=== PATIENT | male | born 1970 | race Hispanic/Latino ===

== ENCOUNTER 2022-09-30 09:47 | Inpatient (IN) | payer MEDICARE, OTHER ==
[~2022-09-30] VITALS: Ht 180.3 cm; Wt 114.8 kg
[~2022-09-30 09:47] MED LIST: LISINOPRIL20 MG; METFORMIN HCL500 MG PO
[2022-09-30] MEDS ORDERED: ASPIRIN 325 MG TAB PO ONE (10:00)
[2022-09-30] MEDS ORDERED: SODIUM CHLORIDE FLUSH 10 ML SYR IV PRN (10:00)
[2022-09-30 10:30] LABS: BASOPHILS % 0.4 % (0.0-1.0); EOSINOPHILS # (AUTO) 0.2 (0.0-0.4); EOSINOPHILS % 1.9 % (0.0-6.0); HEMATOCRIT 27.9 % (38.2-49.6); HEMOGLOBIN 9.1 g/dL (14.0-18.0); LYMPHOCYTES # (AUTO) 0.7 (1.0-3.2); LYMPHOCYTES % 8.2 % (18.0-39.1); MEAN CORPUSCULAR HGB CONC 32.6 g/dL (31-35); MEAN CORPUSCULAR VOLUME 82.8 fL (81-99); MONOCYTES # (AUTO) 0.7 (0.2-0.8); MONOCYTES % 9.1 % (4.4-11.3); NEUTROPHILS # (AUTO) 6.3 (2.1-6.9); NEUTROPHILS % 79.3 % (38.7-80.0); PLATELET COUNT 125 x10e3/uL (140-360); RED BLOOD COUNT 3.37 x10e6/uL (4.3-5.7); RED CELL DISTRIBUTION WIDTH 16.5 % (11.7-14.4)
[2022-09-30] MEDS: FUROSEMIDE INJ 10 MG/ML 4 ML VIAL IV SCH ×2 (10:32→22:15)
[2022-09-30 10:34] LABS: ALBUMIN 3.1 g/dL (3.5-5.0); ALBUMIN/GLOBULIN RATIO 0.7 (0.8-2.0); ANION GAP 15.2 mmol/L (8-16); CALCIUM 8.8 mg/dL (8.4-10.2); CREATININE, SERUM 3.04 mg/dL (0.72-1.25); POTASSIUM 4.2 mmol/L (3.5-5.1)
[2022-09-30 10:41] LABS: INR 1.52; PROTHROMBIN TIME 19.6 seconds (11.9-14.5)
[2022-09-30 10:42] LABS: PARTIAL THROMBOPLASTIN TIME 48.5 seconds (23.8-35.5)
[2022-09-30 13:59] LABS: CLARITY,URINE CLEAR (CLEAR); COLOR,URINE YELLOW (YELLOW); KETONES,URINE NEGATIVE (NEGATIVE); LEUKOCYTE ESTERASE ,URINE NEGATIVE (NEGATIVE); NITRITE,URINE NEGATIVE (NEGATIVE); PROTEIN,URINE DIPSTICK >=300 (NEGATIVE)
[2022-09-30 14:00] LABS: URINE UROBILINOGEN 0.2 mg/dL (0.2 - 1)
[2022-09-30] MEDS ORDERED: ASPIRIN 81 MG CHEW TAB PO ONE (14:00)
[2022-09-30] MEDS ORDERED: ONDANSETRON HCL INJ 2MG/ML 2ML 2 MG/ML VIAL IV PRN (14:00)
[2022-09-30] MEDS ORDERED: DEXTROSE 50% SYRINGE 50 ML IV PRN ×3 (14:00)
[2022-09-30 14:17] LABS: AMORPHOUS SEDIMENT,URINE MODERATE (FEW); BACTERIA,URINE FEW /HPF; EPITHELIAL CELLS,URINE FEW /LPF; RBC,URINE 0-5 /HPF (0-5)
[2022-09-30] MEDS ORDERED: SODIUM CHLORIDE 0.9% 250ML 250 ML ONE (15:04)
[2022-09-30] MEDS ORDERED: FUROSEMIDE20 MG PO (15:16)
[2022-09-30] MEDS ORDERED: ATORVASTATIN CA40 MG PO (15:16)
[2022-09-30] MEDS ORDERED: CARVEDILOL12.5 MG PO (15:16)
[2022-09-30] MEDS ORDERED: NIFEDIPINE ER30 M1 PO (15:16)
[2022-09-30] MEDS ORDERED: ELIQUIS5 MG PO (15:16)
[2022-09-30] MEDS ORDERED: SERTRALINE HCL50 MG PO (15:16)
[2022-09-30] MEDS ORDERED: LANTUS 3ML100 UNITS/ SQ (15:16)
[2022-09-30 15:21] VITALS: BP 128/76
[2022-09-30 16:28] VITALS: BP 128/76
[2022-09-30] MEDS: INSULIN REGULAR, HUMAN 100 UNIT/1 ML SQ SCH ×2 (17:38→22:17)
[2022-09-30 17:42] LABS: CREATINE KINASE MB 1.2 ng/mL (0-5.0)
[2022-09-30 20:00] VITALS: BP 133/73
[2022-09-30 22:15] VITALS: BP 133/73
[2022-09-30 22:49] LABS: CREATINE KINASE MB 1.2 ng/mL (0-5.0)
[2022-10-01] VITALS (7 sets, daily range): BP systolic 137–153; BP diastolic 72–85
[2022-10-01 05:59] LABS: BASOPHILS % 0.4 % (0.0-1.0); EOSINOPHILS # (AUTO) 0.1 (0.0-0.4); EOSINOPHILS % 1.5 % (0.0-6.0); HEMATOCRIT 28.3 % (38.2-49.6); HEMOGLOBIN 8.5 g/dL (14.0-18.0); LYMPHOCYTES # (AUTO) 0.6 (1.0-3.2); LYMPHOCYTES % 7.9 % (18.0-39.1); MEAN CORPUSCULAR HEMOGLOBIN 26.5 pg (28-32); MEAN CORPUSCULAR VOLUME 88.2 fL (81-99); MONOCYTES # (AUTO) 0.7 (0.2-0.8); MONOCYTES % 9.4 % (4.4-11.3); NEUTROPHILS # (AUTO) 6.2 (2.1-6.9); NEUTROPHILS % 80.4 % (38.7-80.0); PLATELET COUNT 140 x10e3/uL (140-360); RED BLOOD COUNT 3.21 x10e6/uL (4.3-5.7); RED CELL DISTRIBUTION WIDTH 15.9 % (11.7-14.4)
[2022-10-01 06:31] LABS: ALBUMIN 2.8 g/dL (3.5-5.0); ALBUMIN/GLOBULIN RATIO 0.7 (0.8-2.0); ANION GAP 15.1 mmol/L (8-16); CALCIUM 8.8 mg/dL (8.4-10.2); CREATININE, SERUM 3.04 mg/dL (0.72-1.25); POTASSIUM 4.1 mmol/L (3.5-5.1)
[2022-10-01 06:40] LABS: CREATINE KINASE MB 0.9 ng/mL (0-5.0)
[2022-10-01] MEDS: INSULIN REGULAR, HUMAN 100 UNIT/1 ML SQ SCH ×4 (07:30→21:20)
[2022-10-01] MEDS: FUROSEMIDE INJ 10 MG/ML 4 ML VIAL IV SCH ×2 (09:49→20:54)
[2022-10-01] MEDS ORDERED: APIXABAN 5 MG TABLET PO SCH (17:00)
[2022-10-01] MEDS: ATORVASTATIN 40 MG TAB PO SCH (20:54)
[2022-10-01] MEDS ORDERED: NON-FORMULARY MEDICATION (Atorvastatin Calcium 40 MG) PO SCH (21:00)
[2022-10-02] VITALS (8 sets, daily range): BP systolic 133–161; BP diastolic 72–95
[2022-10-02 05:43] LABS: BASOPHILS % 0.4 % (0.0-1.0); EOSINOPHILS # (AUTO) 0.3 (0.0-0.4); EOSINOPHILS % 3.4 % (0.0-6.0); HEMATOCRIT 28.8 % (38.2-49.6); HEMOGLOBIN 8.8 g/dL (14.0-18.0); LYMPHOCYTES # (AUTO) 0.8 (1.0-3.2); LYMPHOCYTES % 9.8 % (18.0-39.1); MEAN CORPUSCULAR HEMOGLOBIN 26.9 pg (28-32); MEAN CORPUSCULAR HGB CONC 30.6 g/dL (31-35); MEAN CORPUSCULAR VOLUME 88.1 fL (81-99); MONOCYTES # (AUTO) 0.8 (0.2-0.8); MONOCYTES % 9.9 % (4.4-11.3); PLATELET COUNT 171 x10e3/uL (140-360); RED BLOOD COUNT 3.27 x10e6/uL (4.3-5.7); RED CELL DISTRIBUTION WIDTH 15.6 % (11.7-14.4)
[2022-10-02 06:12] LABS: CALCIUM 9.1 mg/dL (8.4-10.2); CREATININE, SERUM 2.94 mg/dL (0.72-1.25)
[2022-10-02] MEDS: INSULIN REGULAR, HUMAN 100 UNIT/1 ML SQ SCH ×4 (07:30→21:00)
[2022-10-02] MEDS: APIXAB 2.5 MG TABLET PO SCH ×2 (08:40→17:41)
[2022-10-02] MEDS: FUROSEMIDE INJ 10 MG/ML 4 ML VIAL IV SCH ×3 (08:41→17:41)
[2022-10-02] MEDS ORDERED: ONDANSETRON HCL 4 MG ORAL DISINTEGRATING TAB PO PRN (10:45)
[2022-10-02] MEDS: METOLAZONE 5 MG TAB PO SCH (14:30)
[2022-10-02] MEDS: ATORVASTATIN 40 MG TAB PO SCH (21:00)
[2022-10-03] VITALS (7 sets, daily range): BP systolic 140–170; BP diastolic 88–96
[2022-10-03] MEDS: FUROSEMIDE INJ 10 MG/ML 4 ML VIAL IV SCH ×5 (00:13→23:49)
[2022-10-03 07:07] LABS: ALBUMIN 2.6 g/dL (3.5-5.0); ALBUMIN/GLOBULIN RATIO 0.6 (0.8-2.0); ANION GAP 14.5 mmol/L (8-16); CALCIUM 9.1 mg/dL (8.4-10.2); CREATININE, SERUM 2.55 mg/dL (0.72-1.25); POTASSIUM 3.5 mmol/L (3.5-5.1)
[2022-10-03] MEDS: INSULIN REGULAR, HUMAN 100 UNIT/1 ML SQ SCH ×4 (07:30→21:00)
[2022-10-03] MEDS ORDERED: CARVEDILOL 12.5 MG TAB PO SCH (09:00)
[2022-10-03] MEDS: APIXAB 2.5 MG TABLET PO SCH ×2 (09:38→17:39)
[2022-10-03] MEDS: METOLAZONE 5 MG TAB PO SCH (09:38)
[2022-10-03] MEDS: CARVEDILOL 12.5 MG TAB PO SCH (17:40)
[2022-10-03] MEDS ORDERED: POTASSIUM CHLORIDE 20 MEQ TAB CR PO STA (18:30)
[2022-10-03] MEDS: ATORVASTATIN 40 MG TAB PO SCH (21:00)
[2022-10-03] MEDS: HYDRALAZINE HCL 20 MG/ML VIAL IV PRN (22:06)
[2022-10-04] VITALS (7 sets, daily range): BP systolic 147–164; BP diastolic 80–95
[2022-10-04] MEDS: FUROSEMIDE INJ 10 MG/ML 4 ML VIAL IV SCH ×3 (05:52→17:23)
[2022-10-04 06:07] LABS: BASOPHILS % 0.5 % (0.0-1.0); EOSINOPHILS # (AUTO) 0.3 (0.0-0.4); EOSINOPHILS % 5.3 % (0.0-6.0); HEMATOCRIT 28.6 % (38.2-49.6); HEMOGLOBIN 9.4 g/dL (14.0-18.0); LYMPHOCYTES # (AUTO) 0.9 (1.0-3.2); LYMPHOCYTES % 16.5 % (18.0-39.1); MEAN CORPUSCULAR HEMOGLOBIN 26.9 pg (28-32); MEAN CORPUSCULAR HGB CONC 32.9 g/dL (31-35); MEAN CORPUSCULAR VOLUME 81.7 fL (81-99); MONOCYTES # (AUTO) 0.5 (0.2-0.8); MONOCYTES % 9.9 % (4.4-11.3); NEUTROPHILS # (AUTO) 3.7 (2.1-6.9); NEUTROPHILS % 67.4 % (38.7-80.0); PLATELET COUNT 211 x10e3/uL (140-360); RED CELL DISTRIBUTION WIDTH 15.9 % (11.7-14.4)
[2022-10-04 06:28] LABS: ANION GAP 13.3 mmol/L (8-16); CALCIUM 9.2 mg/dL (8.4-10.2); CREATININE, SERUM 2.51 mg/dL (0.72-1.25); POTASSIUM 3.3 mmol/L (3.5-5.1)
[2022-10-04 06:47] LABS: CHOL/HDL RATIO 3.6 (3.9-4.7)
[2022-10-04 07:06] LABS: THYROID STIMULATING HORMONE 1.417 uIU/mL (0.350-4.940)
[2022-10-04] MEDS: INSULIN REGULAR, HUMAN 100 UNIT/1 ML SQ SCH ×4 (07:30→22:08)
[2022-10-04] MEDS: APIXAB 2.5 MG TABLET PO SCH ×2 (09:55→17:23)
[2022-10-04] MEDS: METOLAZONE 5 MG TAB PO SCH (09:55)
[2022-10-04] MEDS: CARVEDILOL 12.5 MG TAB PO SCH ×2 (09:56→17:23)
[2022-10-04] MEDS ORDERED: POTASSIUM CHLORIDE 20 MEQ TAB CR PO STA (18:54)
[2022-10-04] MEDS: ATORVASTATIN 40 MG TAB PO SCH (22:02)
[2022-10-05] VITALS (7 sets, daily range): BP systolic 124–167; BP diastolic 80–90
[2022-10-05] MEDS: FUROSEMIDE INJ 10 MG/ML 4 ML VIAL IV SCH ×2 (00:24→06:10)
[2022-10-05] MEDS: HYDRALAZINE HCL 20 MG/ML VIAL IV PRN (00:25)
[2022-10-05 06:35] LABS: ANION GAP 18.1 mmol/L (8-16); CALCIUM 9.5 mg/dL (8.4-10.2); CREATININE, SERUM 2.43 mg/dL (0.72-1.25); POTASSIUM 3.1 mmol/L (3.5-5.1)
[2022-10-05] MEDS: INSULIN REGULAR, HUMAN 100 UNIT/1 ML SQ SCH ×4 (07:30→21:16)
[2022-10-05] MEDS: CARVEDILOL 12.5 MG TAB PO SCH ×2 (10:06→17:00)
[2022-10-05] MEDS: METOLAZONE 5 MG TAB PO SCH (10:07)
[2022-10-05] MEDS: NIFEDIPINE CR 30 MG TAB PO SCH (10:07)
[2022-10-05] MEDS: APIXAB 2.5 MG TABLET PO SCH ×2 (10:07→17:00)
[2022-10-05] MEDS ORDERED: POTASSIUM CHLORIDE 20 MEQ TAB CR PO ONE (12:00)
[2022-10-05] MEDS ORDERED: AZITHROMYCIN 250 MG TAB PO SCH (14:00)
[2022-10-05] MEDS: ATORVASTATIN 40 MG TAB PO SCH (21:17)
[2022-10-05 22:15] LABS: CREATININE,URINE RANDOM 113.35 mg/dL (63-166)
[2022-10-05 22:39] LABS: TOTAL PROTEIN, URINE 609.8 mg/dL (1-14)
[2022-10-06 01:44] VITALS: BP 133/79
[2022-10-06 04:54] VITALS: BP 133/78
[2022-10-06] MEDS: INSULIN REGULAR, HUMAN 100 UNIT/1 ML SQ SCH (07:30)
[2022-10-06 08:03] VITALS: BP 127/78
[2022-10-06] MEDS ORDERED: ENALAPRIL MALEATE 10 MG TAB PO SCH (09:00)
[2022-10-06] MEDS ORDERED: COREG12.5 MG PO (09:16)
[2022-10-06] MEDS ORDERED: ELIQUIS2.5 MG PO (09:16)
[2022-10-06] MEDS ORDERED: VASOTEC10 MG PO (09:16)
[2022-10-06] MEDS ORDERED: METOLAZONE5 MG PO (09:16)
[2022-10-06] MEDS: METOLAZONE 5 MG TAB PO SCH (09:18)
[2022-10-06] MEDS: APIXAB 2.5 MG TABLET PO SCH (09:18)
[2022-10-06] MEDS: CARVEDILOL 12.5 MG TAB PO SCH (09:18)
[2022-10-06] MEDS: NIFEDIPINE CR 30 MG TAB PO SCH (09:19)
[2022-10-06 09:28] VITALS: BP 127/78
[2022-10-06 09:53] LABS: ANION GAP 14.5 mmol/L (8-16); CREATININE, SERUM 2.81 mg/dL (0.72-1.25); POTASSIUM 3.5 mmol/L (3.5-5.1)
[2022-10-06 11:44] VITALS: BP 134/81
== END 2022-10-06 13:30 | disposition home health service (06) | DRG 177 ==
LOC: ER 09:58 → ERHOLD 13:54 → INTOOBSV 13:54 → MED/SURG2 14:43 → OBSVTOIN 10-02 07:23
PROVIDERS: ADMIT Internal Medicine; ATTEND Internal Medicine
DX: J69.0 Pneumonitis due to inhalation of food and vomit (principal); I50.33 Acute on chronic diastolic (congestive) heart failure; I13.0 Hypertensive heart and chronic kidney disease with heart failure and stage 1 through stage 4 chronic kidney disease, or unspecified chronic kidney disease; I69.351 Hemiplegia and hemiparesis following cerebral infarction affecting right dominant side; N17.9 Acute kidney failure, unspecified; E87.20 Acidosis, unspecified; N18.4 Chronic kidney disease, stage 4 (severe); D63.8 Anemia in other chronic diseases classified elsewhere; E11.319 Type 2 diabetes mellitus with unspecified diabetic retinopathy without macular edema; E11.22 Type 2 diabetes mellitus with diabetic chronic kidney disease; E11.42 Type 2 diabetes mellitus with diabetic polyneuropathy; E11.69 Type 2 diabetes mellitus with other specified complication; E78.5 Hyperlipidemia, unspecified; I69.391 Dysphagia following cerebral infarction; R13.10 Dysphagia, unspecified; I48.91 Unspecified atrial fibrillation; E66.9 Obesity, unspecified; G47.33 Obstructive sleep apnea (adult) (pediatric); Z89.421 Acquired absence of other right toe(s); Z79.01 Long term (current) use of anticoagulants; Z68.35 Body mass index [BMI] 35.0-35.9, adult; I25.2 Old myocardial infarction; Z86.16 Personal history of COVID-19; Z82.49 Family history of ischemic heart disease and other diseases of the circulatory system; Z20.822 Contact with and (suspected) exposure to COVID-19; E87.6 Hypokalemia; Z79.4 Long term (current) use of insulin
CPT/HCPCS: 36415; 71045; 74230; 76770; 80048; 80053; 80061; 81001; 82550; 82553; 82570; 82948; 83036; 83880; 84156; 84443; 84484; 85025; 85610; 85730; 87040; 93005; 94799; 99284; G0378; J0360; J0456; J0696; J1817; J1940; J7050

== ENCOUNTER 2022-10-26 20:56 | Emergency (ER) | payer MEDICARE, OTHER ==
[~2022-10-26] VITALS: Ht 180.3 cm; Wt 114.8 kg
[~2022-10-26 20:56] MED LIST changes: +ATORVASTATIN CA40 MG PO; +CARVEDILOL12.5 MG PO; +COREG12.5 MG PO; +ELIQUIS2.5 MG PO; +ELIQUIS5 MG PO; +FUROSEMIDE20 MG PO; +LANTUS 3ML100 UNITS/ SQ; +METOLAZONE5 MG PO; +NIFEDIPINE ER30 M1 PO; +SERTRALINE HCL50 MG PO; +VASOTEC10 MG PO
[2022-10-27] MEDS ORDERED: ACETAMINOPHEN 325 MG TAB PO ONE (02:30)
[2022-10-27 02:39] VITALS: BP 149/86
== END 2022-10-27 02:40 | disposition home or self-care (01) ==
LOC: ER 21:04
DX: S00.83XA Contusion of other part of head, initial encounter (principal); S40.011A Contusion of right shoulder, initial encounter; W01.198A Fall on same level from slipping, tripping and stumbling with subsequent striking against other object, initial encounter; Y93.E1 Activity, personal bathing and showering; Y92.091 Bathroom in other non-institutional residence as the place of occurrence of the external cause; I10 Essential (primary) hypertension; E11.9 Type 2 diabetes mellitus without complications; I50.9 Heart failure, unspecified; I69.351 Hemiplegia and hemiparesis following cerebral infarction affecting right dominant side
CPT/HCPCS: 70450; 72125; 99283

== ENCOUNTER 2023-04-09 18:32 | Inpatient (IN) | payer MEDICARE, OTHER ==
[~2023-04-09] VITALS: Ht 180.3 cm; Wt 114.8 kg
[2023-04-09 19:52] LABS: BASOPHILS % 0.5 % (0.0-1.0); EOSINOPHILS # (AUTO) 0.3 (0.0-0.4); EOSINOPHILS % 3.8 % (0.0-6.0); HEMATOCRIT 32.6 % (38.2-49.6); HEMOGLOBIN 10.4 g/dL (14.0-18.0); LYMPHOCYTES % 13.3 % (18.0-39.1); MEAN CORPUSCULAR HEMOGLOBIN 28.9 pg (28-32); MEAN CORPUSCULAR HGB CONC 31.9 g/dL (31-35); MEAN CORPUSCULAR VOLUME 90.6 fL (81-99); MONOCYTES # (AUTO) 0.5 (0.2-0.8); MONOCYTES % 7.1 % (4.4-11.3); NEUTROPHILS # (AUTO) 5.5 (2.1-6.9); NEUTROPHILS % 74.9 % (38.7-80.0); PLATELET COUNT 152 x10e3/uL (140-360); RED CELL DISTRIBUTION WIDTH 14.6 % (11.7-14.4)
[2023-04-09 20:11] LABS: ALBUMIN 3.9 g/dL (3.5-5.0); ALBUMIN/GLOBULIN RATIO 0.9 (0.8-2.0); ANION GAP 15.6 mmol/L (8-16); CALCIUM 8.9 mg/dL (8.4-10.2); CREATININE, SERUM 3.45 mg/dL (0.72-1.25); POTASSIUM 4.6 mmol/L (3.5-5.1)
[2023-04-09 20:19] LABS: CREATINE KINASE MB 1.1 ng/mL (0-5.0)
[2023-04-09 20:22] LABS: CLARITY,URINE SL CLOUDY (CLEAR); COLOR,URINE YELLOW (YELLOW); KETONES,URINE TRACE (NEGATIVE); LEUKOCYTE ESTERASE ,URINE NEGATIVE (NEGATIVE); NITRITE,URINE NEGATIVE (NEGATIVE); PROTEIN,URINE DIPSTICK >=300 (NEGATIVE); URINE UROBILINOGEN 0.2 mg/dL (0.2 - 1)
[2023-04-09 20:34] LABS: BACTERIA,URINE MODERATE /HPF; EPITHELIAL CELLS,URINE MANY /LPF
[2023-04-09] MEDS ORDERED: DEXTROSE 50% SYRINGE 50 ML IV PRN (20:45)
[2023-04-09] MEDS ORDERED: SODIUM CHLORIDE 0.9% 1000ML 1,000 ML IV ONE (20:45)
[2023-04-09] MEDS: INSULIN REGULAR, HUMAN 100 UNIT/1 ML SQ SCH (21:00)
[2023-04-09 23:30] VITALS: BP 146/78; PULSE 79; RESP 18; TEMP 97.7; O2SAT 99
[2023-04-10 00:34] VITALS: BP 146/78; PULSE 79; RESP 18; TEMP 97.7; O2SAT 100
[2023-04-10 04:52] VITALS: BP 136/76; PULSE 72; RESP 17; TEMP 97.7; O2SAT 100
[2023-04-10] MEDS: INSULIN REGULAR, HUMAN 100 UNIT/1 ML SQ SCH ×4 (07:30→21:00)
[2023-04-10 07:41] LABS: BASOPHILS # (AUTO) 0.1 (0.0-0.1); BASOPHILS % 0.7 % (0.0-1.0); EOSINOPHILS # (AUTO) 0.4 (0.0-0.4); EOSINOPHILS % 4.7 % (0.0-6.0); HEMOGLOBIN 10.4 g/dL (14.0-18.0); LYMPHOCYTES # (AUTO) 1.5 (1.0-3.2); LYMPHOCYTES % 19.8 % (18.0-39.1); MEAN CORPUSCULAR HEMOGLOBIN 29.1 pg (28-32); MEAN CORPUSCULAR HGB CONC 32.5 g/dL (31-35); MEAN CORPUSCULAR VOLUME 89.4 fL (81-99); MONOCYTES # (AUTO) 0.5 (0.2-0.8); MONOCYTES % 6.9 % (4.4-11.3); NEUTROPHILS % 67.8 % (38.7-80.0); PLATELET COUNT 120 x10e3/uL (140-360); RED BLOOD COUNT 3.58 x10e6/uL (4.3-5.7); RED CELL DISTRIBUTION WIDTH 14.2 % (11.7-14.4)
[2023-04-10 08:08] LABS: ALBUMIN 3.5 g/dL (3.5-5.0); ANION GAP 12.4 mmol/L (8-16); CALCIUM 8.7 mg/dL (8.4-10.2); CREATININE, SERUM 2.89 mg/dL (0.72-1.25); POTASSIUM 4.4 mmol/L (3.5-5.1)
[2023-04-10 09:00] VITALS: BP 158/95; PULSE 73; RESP 16; TEMP 98.1; O2SAT 98
[2023-04-10 13:00] VITALS: BP 150/91; PULSE 75; RESP 20; TEMP 97.6; O2SAT 99
[2023-04-10] MEDS ORDERED: ONDANSETRON HCL INJ 2MG/ML 2ML 2 MG/ML VIAL IV PRN (13:45)
[2023-04-10] MEDS ORDERED: ACETAMINOPHEN 325 MG TAB PO PRN (13:45)
[2023-04-10] MEDS: APIXAB 2.5 MG TABLET PO SCH (17:34)
[2023-04-10] MEDS: CARVEDILOL 12.5 MG TAB PO SCH (17:34)
[2023-04-10 20:00] VITALS: BP 153/85; PULSE 71; RESP 18; TEMP 97.8; O2SAT 100
[2023-04-10] MEDS ORDERED: ATORVASTATIN 40 MG TAB PO SCH (21:00)
[2023-04-11 00:59] VITALS: BP 154/82; PULSE 66; RESP 18; TEMP 97.7; O2SAT 100
[2023-04-11 05:00] VITALS: BP 154/81; PULSE 65; RESP 18; TEMP 97.5; O2SAT 100
[2023-04-11 06:01] LABS: BASOPHILS % 0.6 % (0.0-1.0); EOSINOPHILS # (AUTO) 0.3 (0.0-0.4); EOSINOPHILS % 4.6 % (0.0-6.0); HEMOGLOBIN 10.2 g/dL (14.0-18.0); LYMPHOCYTES # (AUTO) 1.3 (1.0-3.2); LYMPHOCYTES % 20.1 % (18.0-39.1); MEAN CORPUSCULAR HEMOGLOBIN 28.7 pg (28-32); MEAN CORPUSCULAR HGB CONC 31.9 g/dL (31-35); MEAN CORPUSCULAR VOLUME 89.9 fL (81-99); MONOCYTES # (AUTO) 0.4 (0.2-0.8); MONOCYTES % 6.7 % (4.4-11.3); NEUTROPHILS # (AUTO) 4.3 (2.1-6.9); NEUTROPHILS % 67.7 % (38.7-80.0); PLATELET COUNT 131 x10e3/uL (140-360); RED BLOOD COUNT 3.56 x10e6/uL (4.3-5.7); RED CELL DISTRIBUTION WIDTH 14.1 % (11.7-14.4)
[2023-04-11 06:38] LABS: ANION GAP 10.4 mmol/L (8-16); CALCIUM 9.1 mg/dL (8.4-10.2); CREATININE, SERUM 2.27 mg/dL (0.72-1.25); POTASSIUM 4.4 mmol/L (3.5-5.1)
[2023-04-11] MEDS: INSULIN REGULAR, HUMAN 100 UNIT/1 ML SQ SCH (07:30)
[2023-04-11 08:41] VITALS: BP 158/86; PULSE 65; RESP 22; TEMP 97.7; O2SAT 100
[2023-04-11] MEDS ORDERED: NIFEDIPINE CR 30 MG TAB PO SCH (09:00)
[2023-04-11] MEDS ORDERED: SERTRALINE HCL 50 MG TAB PO SCH (09:00)
[2023-04-11] MEDS ORDERED: ENALAPRIL MALEATE 10 MG TAB PO SCH (09:00)
[2023-04-11] MEDS: APIXAB 2.5 MG TABLET PO SCH (10:00)
[2023-04-11] MEDS: CARVEDILOL 12.5 MG TAB PO SCH (10:01)
[2023-04-11 12:33] VITALS: BP 138/80; PULSE 57; RESP 18; TEMP 98.2; O2SAT 98
== END 2023-04-11 14:05 | disposition home or self-care (01) | DRG 683 ==
LOC: ER 18:38 → ERHOLD 20:35 → MED/SURG2 23:42 → OBSVTOIN 04-11 11:32
PROVIDERS: ADMIT Internal Medicine; ATTEND Internal Medicine
DX: N17.9 Acute kidney failure, unspecified (principal); I13.0 Hypertensive heart and chronic kidney disease with heart failure and stage 1 through stage 4 chronic kidney disease, or unspecified chronic kidney disease; I69.351 Hemiplegia and hemiparesis following cerebral infarction affecting right dominant side; E86.0 Dehydration; N18.30 Chronic kidney disease, stage 3 unspecified; R19.7 Diarrhea, unspecified; I50.9 Heart failure, unspecified; E11.22 Type 2 diabetes mellitus with diabetic chronic kidney disease; Z89.441 Acquired absence of right ankle
CPT/HCPCS: 0223U; 36415; 70450; 71045; 80048; 80053; 81001; 82550; 82553; 82948; 83880; 84484; 85025; 93005; 99284; G0378; J7030

== ENCOUNTER 2024-06-22 10:43 | Emergency (ER) | payer MEDICARE ==
[~2024-06-22] VITALS: Ht 170.2 cm; Wt 114.8 kg
[2024-06-22 10:45] VITALS: TEMP 97.1
[2024-06-22 11:17] LABS: BASOPHILS % 0.5 % (0.0-1.0); EOSINOPHILS # (AUTO) 0.2 (0.0-0.4); HEMATOCRIT 36.4 % (38.2-49.6); HEMOGLOBIN 11.4 g/dL (14.0-18.0); LYMPHOCYTES # (AUTO) 0.8 (1.0-3.2); LYMPHOCYTES % 14.3 % (18.0-39.1); MEAN CORPUSCULAR HEMOGLOBIN 28.9 pg (28-32); MEAN CORPUSCULAR HGB CONC 31.3 g/dL (31-35); MEAN CORPUSCULAR VOLUME 92.2 fL (81-99); MONOCYTES # (AUTO) 0.3 (0.2-0.8); NEUTROPHILS # (AUTO) 4.4 (2.1-6.9); NEUTROPHILS % 75.9 % (38.7-80.0); PLATELET COUNT 148 x10e3/uL (140-360); RED BLOOD COUNT 3.95 x10e6/uL (4.3-5.7); RED CELL DISTRIBUTION WIDTH 14.3 % (11.7-14.4); WHITE BLOOD COUNT 5.82 x10e3/uL (4.8-10.8)
[2024-06-22 11:39] LABS: INR 1.41; PARTIAL THROMBOPLASTIN TIME 34.3 seconds (23.8-35.5); PROTHROMBIN TIME 18.2 seconds (11.9-14.5)
[2024-06-22 11:46] LABS: ALBUMIN 3.2 g/dL (3.5-5.0); ALBUMIN/GLOBULIN RATIO 0.8 (0.8-2.0); ANION GAP 12.7 mmol/L (8-16); BILIRUBIN,TOTAL 0.4 mg/dL (0.2-1.2); CALCIUM 8.4 mg/dL (8.4-10.2); CREATININE, SERUM 3.24 mg/dL (0.72-1.25); POTASSIUM 4.7 mmol/L (3.5-5.1); TOTAL PROTEIN 7.1 g/dL (6.5-8.1)
[2024-06-22 11:52] LABS: TROPONIN I 0.026 ng/mL (0-0.300)
[2024-06-22 12:45] VITALS: PULSE 65; RESP 17; O2SAT 96
== END 2024-06-22 12:48 | disposition other institution (70) ==
LOC: ER 10:49
DX: R47.1 Dysarthria and anarthria (principal); I69.351 Hemiplegia and hemiparesis following cerebral infarction affecting right dominant side; E11.65 Type 2 diabetes mellitus with hyperglycemia; I10 Essential (primary) hypertension; E78.5 Hyperlipidemia, unspecified; N28.9 Disorder of kidney and ureter, unspecified; Z11.52 Encounter for screening for COVID-19; R94.31 Abnormal electrocardiogram [ECG] [EKG]
CPT/HCPCS: 36415; 70450; 71045; 80053; 82550; 82948; 84484; 85025; 85610; 85730; 93005; 99284; U0002